=== PATIENT | female | born 1935 | race Hispanic/Latino ===

== ENCOUNTER 2022-05-01 22:05 | Emergency (ER) | payer OTHER ==
[~2022-05-01] VITALS: Ht 152.4 cm; Wt 85.3 kg
[2022-05-01] MEDS ORDERED: MORPHINE 2 MG SYG IVP ONE (23:00)
[2022-05-01] MEDS ORDERED: LACTATED RINGERS 1000ML 1,000 ML IV ONE (23:00)
[2022-05-01 23:25] LABS: BASOPHILS % (AUTO) 0.3 % (0.0-5.0); EOSINOPHILS % (AUTO) 0.4 % (0.0-8.0); HEMATOCRIT 31.3 % (36-48); LYMPHOCYTES % (AUTO) 5.4 % (21.0-51.0); MEAN CORPUSCULAR HEMOGLOBIN 35.1 pg (27.0-33.0); MEAN CORPUSCULAR HGB CONC 33.5 g/dL (32.0-36.0); MEAN CORPUSCULAR VOLUME 104.7 fL (79-99); NEUTROPHILS % (AUTO) 82.9 % (40.0-77.0); PLATELET COUNT (AUTO) 152 K/uL (130-400); RED BLOOD CELL COUNT(AUTO) 2.99 MIL/uL (4.00-5.50); WHITE BLOOD COUNT (AUTO) 9.4 K/uL (4.8-10.8)
[2022-05-01 23:35] LABS: CARBON DIOXIDE 25 mmol/L (21-32); CHLORIDE 107 mmol/L (101-111); GLOMERULAR FILTR. RATE CALC 56 mL/min (>60); GLUCOSE,RANDOM 130 mg/dL (70-105); POTASSIUM 3.3 mmol/L (3.5-5.1); SODIUM SERUM 143 mmol/L (136-145); UREA NITROGEN, BLOOD 20 mg/dL (7-18)
[2022-05-01] MEDS ORDERED: MORPHINE 2 MG SYG ONE (23:43)
[2022-05-01 23:44] LABS: ALANINE AMINOTRANSFERASE 12 U/L (12-78); ALBUMIN 2.7 g/dL (3.5-5.0); AMYLASE 125 U/L (25-115); ASPARTATE AMINOTRANSFERASE 13 U/L (10-37); CREATINE KINASE, TOTAL 49 U/L (21-232); TOTAL PROTEIN, SERUM 5.9 g/dL (6.0-8.3)
[2022-05-01 23:48] LABS: LIPASE < 50 U/L (114-286)
[2022-05-01] MEDS: MORPHINE 2 MG SYG ONE ×2 (23:52→23:54)
[2022-05-01] MEDS ORDERED: IOHEXOL 350 MG/ML 100ML INFUS..BTL IV ONE (23:52)
[2022-05-01] MEDS: LACTATED RINGERS 1000ML 1,000 ML IV ONE ×2 (23:52→23:53)
[2022-05-02] MEDS ORDERED: IBUP-1493 PO (00:47)
[2022-05-02] MEDS ORDERED: DIPH1TAB PO (00:47)
[2022-05-02] MEDS ORDERED: ONDA-104 PO (00:47)
[2022-05-02 01:32] VITALS: BP 150/53
== END 2022-05-02 01:50 | disposition home or self-care (01) ==
LOC: EDH 22:05
DX: K52.0 Gastroenteritis and colitis due to radiation (principal); E78.00 Pure hypercholesterolemia, unspecified; C56.9 Malignant neoplasm of unspecified ovary; I10 Essential (primary) hypertension; F03.90 Unspecified dementia, unspecified severity, without behavioral disturbance, psychotic disturbance, mood disturbance, and anxiety; J44.9 Chronic obstructive pulmonary disease, unspecified; Z85.028 Personal history of other malignant neoplasm of stomach; Y84.2 Radiological procedure and radiotherapy as the cause of abnormal reaction of the patient, or of later complication, without mention of misadventure at the time of the procedure; Y92.89 Other specified places as the place of occurrence of the external cause
CPT/HCPCS: 99285; 74177; 96374; 82150; 82550; 84484; 80053; 83690; 85025; 36415; 93005; J7120; Q9967

== ENCOUNTER 2022-05-26 06:40 | Observation (INO) | payer OTHER, MEDICARE ==
[~2022-05-26] VITALS: Ht 152.4 cm; Wt 55.2 kg
[~2022-05-26 06:40] MED LIST: DIPH1TAB PO; IBUP-1493 PO; ONDA-104 PO
[2022-05-26] MEDS ORDERED: LACTATED RINGERS 1000ML 1,000 ML IV ONE (07:30)
[2022-05-26 08:55] LABS: BASOPHILS % (AUTO) 0.2 % (0.0-5.0); EOSINOPHILS % (AUTO) 0.6 % (0.0-8.0); HEMATOCRIT 27.7 % (36-48); LYMPHOCYTES % (AUTO) 20.9 % (21.0-51.0); MEAN CORPUSCULAR HEMOGLOBIN 35.1 pg (27.0-33.0); MEAN CORPUSCULAR HGB CONC 33.2 g/dL (32.0-36.0); MEAN CORPUSCULAR VOLUME 105.7 fL (79-99); MONOCYTES % (AUTO) 7.7 % (3.0-13.0); NEUTROPHILS % (AUTO) 69.5 % (40.0-77.0); PLATELET COUNT (AUTO) 123 K/uL (130-400); RED BLOOD CELL COUNT(AUTO) 2.62 MIL/uL (4.00-5.50); RED CELL DISTRIBUTION WIDTH 14.3 % (11.0-15.5); WHITE BLOOD COUNT (AUTO) 8.3 K/uL (4.8-10.8)
[2022-05-26 09:06] LABS: CARBON DIOXIDE 27 mmol/L (21-32); CHLORIDE 102 mmol/L (101-111); CREATININE 0.8 mg/dL (0.5-1.5); GLOMERULAR FILTR. RATE CALC 72 mL/min (>60); GLUCOSE,RANDOM 81 mg/dL (70-105); POTASSIUM 3.5 mmol/L (3.5-5.1); SODIUM SERUM 133 mmol/L (136-145); UREA NITROGEN, BLOOD 14 mg/dL (7-18)
[2022-05-26 09:10] LABS: ALANINE AMINOTRANSFERASE 17 U/L (12-78); ALBUMIN 2.4 g/dL (3.5-5.0); ASPARTATE AMINOTRANSFERASE 16 U/L (10-37); TOTAL PROTEIN, SERUM 5.2 g/dL (6.0-8.3)
[2022-05-26 09:11] LABS: LIPASE < 50 U/L (114-286)
[2022-05-26] MEDS ORDERED: IOHEXOL 350 MG/ML 100ML INFUS..BTL IV ONE (09:40)
[2022-05-26] MEDS ORDERED: MORPHINE 2 MG SYG IVP PRN (12:30)
[2022-05-26] MEDS ORDERED: LACTULOSE 20 GM/30 ML UDCUP PO SCH (12:30)
[2022-05-26] MEDS ORDERED: BISACODYL 10 MG SUPP.RECT RC ONE (12:30)
[2022-05-26] MEDS ORDERED: LACTULOSE 20 GM/30 ML UDCUP PO PRN (13:30)
[2022-05-26 16:52] LABS: ABG BASE EXCESS -1.4 mmol/L (-2.0-3.0); ABG OXYGEN SATURATION 95.3 % (95.0-99.0); ABG PCO2 29 mmHg (32-45)
[2022-05-26 19:06] VITALS: BP 190/66
[2022-05-26] MEDS ORDERED: FURO20TA6 PO (20:02)
[2022-05-26] MEDS ORDERED: ALEN70TA80 PO (20:04)
[2022-05-26] MEDS ORDERED: PANT40GR PO (20:05)
[2022-05-26] MEDS ORDERED: LEVO125C4 PO (20:06)
[2022-05-26] MEDS ORDERED: FLUT1BLS3 IH (20:06)
[2022-05-26] MEDS ORDERED: DiphenhydrAMINE HCL 50 MG/ML VIAL IV PRN (23:00)
[2022-05-26] MEDS ORDERED: POTASSIUM CHLORIDE 20MEQ/100ML 100 ML IV PRN (23:00)
[2022-05-26] MEDS ORDERED: MAG/ALUM/SIMETH 30 ML UDCUP PO PRN (23:00)
[2022-05-26] MEDS ORDERED: ONDANSETRON 4MG INJ IV PRN (23:00)
[2022-05-26] MEDS ORDERED: ACETAMINOPHEN 325 MG TAB PO PRN ×2 (23:00)
[2022-05-26] MEDS ORDERED: ALBUTEROL 0.083% 2.5 MG/3 ML INH IH PRN (23:00)
[2022-05-26] MEDS ORDERED: LIDOCAINE HCL-MPF 1% 2ML VIAL IV PRN (23:00)
[2022-05-26] MEDS ORDERED: POTASSIUM CHLORIDE 10% ELIXIR 20 MEQ/15 ML UDCUP PO PRN (23:00)
[2022-05-26] MEDS: KCL 20 MEQ ERTAB PO PRN ×2 (23:08→23:09)
[2022-05-27 00:09] VITALS: BP 131/50
[2022-05-27 03:06] VITALS: BP 137/95
[2022-05-27 03:09] VITALS: BP 129/87
[2022-05-27] MEDS ORDERED: LEVOTHYROXINE 125 MCG TABLET PO SCH (06:30)
[2022-05-27 08:00] VITALS: BP_SYST 122; BP_SYST 127; BP_DIAS 57
[2022-05-27] MEDS ORDERED: PANTOPRAZOLE 40 MG TAB DR PO SCH (09:00)
[2022-05-27] MEDS ORDERED: FUROSEMIDE 20 MG TABLET PO SCH (09:00)
[2022-05-27] MEDS: KCL 20 MEQ ERTAB PO PRN (09:56)
== END 2022-05-27 11:52 | disposition home or self-care (01) ==
LOC: EDH 06:40 → EDHIP 11:45 → 4CH 18:45
PROVIDERS: ADMIT Internal Medicine; ATTEND Internal Medicine
DX: K56.41 Fecal impaction (principal); M81.0 Age-related osteoporosis without current pathological fracture; E03.9 Hypothyroidism, unspecified; E78.2 Mixed hyperlipidemia; I65.23 Occlusion and stenosis of bilateral carotid arteries; I25.10 Atherosclerotic heart disease of native coronary artery without angina pectoris; I13.0 Hypertensive heart and chronic kidney disease with heart failure and stage 1 through stage 4 chronic kidney disease, or unspecified chronic kidney disease; I50.32 Chronic diastolic (congestive) heart failure; N18.30 Chronic kidney disease, stage 3 unspecified; K21.9 Gastro-esophageal reflux disease without esophagitis; I48.0 Paroxysmal atrial fibrillation; F03.90 Unspecified dementia, unspecified severity, without behavioral disturbance, psychotic disturbance, mood disturbance, and anxiety; I49.5 Sick sinus syndrome; J43.9 Emphysema, unspecified; J96.10 Chronic respiratory failure, unspecified whether with hypoxia or hypercapnia; C56.9 Malignant neoplasm of unspecified ovary; M48.9 Spondylopathy, unspecified; E44.0 Moderate protein-calorie malnutrition; D68.69 Other thrombophilia; J84.10 Pulmonary fibrosis, unspecified; Z85.43 Personal history of malignant neoplasm of ovary; Z92.21 Personal history of antineoplastic chemotherapy; Z86.73 Personal history of transient ischemic attack (TIA), and cerebral infarction without residual deficits; Z92.3 Personal history of irradiation; Z79.899 Other long term (current) drug therapy
CPT/HCPCS: 96374; 96361; 99285; 82435; 82947; 84132; 84295; 80053; 82803; 83690; 85025; 85018; 83605; 36415; 74021; 71045; 74177; G0378 ×13; Q9967